=== PATIENT | male | born 1945 | race Caucasian/White ===

== ENCOUNTER 2018-01-15 21:54 | Observation (INO) ==
[2018-01-15 23:10] LABS: Basophils # 0.1 10*3/uL (0.0-0.2); Basophils % 0.4 % (0.0-0.8); Eosinophils # 0.5 10*3/uL (0.0-0.87); Eosinophils % 4.1 % (0.00-10.9); Hematocrit 51.2 VOL% (42.0-52.0); Hemoglobin 16.9 GM/DL (14.0-18.0); Immature Granulocytes % 0.3 %; Immature Granulocytes Absolute 0.04 #; Lymphocytes # 3.1 10*3/uL (1.4-4.0); Lymphocytes % 26.2 % (21.2-54.2); Mean Corpuscular Hemoglobin 31 PG (27-34); Mean Corpuscular Volume 94.3 FL (87-102); Mean Platelet Volume 11.5 FL (9.6-12.0); Monocytes % 8.7 % (1.7-12.7); Neutrophils # 7.1 10*3/uL (1.4-7.4); Neutrophils % 60.3 % (38.7-73.9); Platelet Count 213 T/CUMM (130-400); Red Blood Count 5.43 MC/CUMM (3.8-5.5); Red Cell Distribution Width 14.8 % (9.3-17.3); White Blood Count 11.7 T/CUMM (4-12)
[2018-01-15 23:15] LABS: PT Patient Result 10.4 SECS
[2018-01-15 23:31] LABS: Alanine Aminotransferase 24 U/L (16-61); Albumin 3.2 G/DL (3.4-5.0); Alkaline Phosphatase 106 U/L (45-117); Aspartate Amino Transferase 26 U/L (0-37); Blood Urea Nitrogen 21 MG/DL (7-18); Calcium 8.8 MG/DL (8.5-10.1); Glucose 116 MG/DL (74-106); Osmolality,Calculated 284.3 MOS/KG (273-304); Potassium 4.3 MMOL/L (3.5-5.1); Sodium 141 MMOL/L (136-145); Total Protein 7.6 G/DL (6.4-8.3); Troponin I < 0.015 NG/ML (0.00-0.045)
[2018-01-15 23:34] LABS: Apearance,Urine CLEAR (Clear); Bacteria,Urine Occasional /HPF (Few); Bilirubin,Urine Negative (Negative); Blood, Urine Negative (Negative); Glucose,Urine (UA) Negative (Negative); Hyaline Casts,Urine 1 /LPF (0-3); Ketones,Urine Negative (Negative); Mucus,Urine Occasional /LPF (Occasional); Nitrite,Urine Negative (Negative); Protein,Urine Negative; RBC,Urine 1 /HPF (0-4); Urine Color Yellow (Yellow); Urine Specific Gravity 1.013 (1.001-1.035); WBC,Urine <1 /HPF (0-6)
[2018-01-15 23:39] LABS: Barbiturates Screen,Urine Negative (Negative); Benzodiazepines Screen,Urine Negative (Negative); Cannabinoid Screen,Urine Negative (Negative); Opiate Screen,Urine Negative (Negative); Phencyclidine Screen,Urine Negative (Negative)
[2018-01-15 23:43] LABS: Ammonia 42 UMOL/L (11-32)
[2018-01-16 00:17] LABS: Sedimentation Rate-Westergren 8 MM/HR (0-20)
[2018-01-16] MEDS ORDERED: GLUCAGON 1 MG VIAL IM PRN (00:53)
[2018-01-16] MEDS ORDERED: ACETAMINOPHEN 325 MG TABLET PO PRN (00:53)
[2018-01-16] MEDS ORDERED: DEXTROSE 50% 25 GM/50 ML VIAL IV PRN (00:53)
[2018-01-16] MEDS ORDERED: ONDANSETRON 4 MG/2 ML VIAL IV PRN (00:53)
[2018-01-16] MEDS ORDERED: MORPHINE 4 MG/1 ML VIAL IV PRN (00:53)
[2018-01-16] MEDS: SODIUM CHLORIDE 0.9% 1,000 ML IV SCH ×2 (01:10→14:53)
[2018-01-16] MEDS: INSULIN REGULAR 100 UNIT/ML SUBCUT SCH ×4 (04:40→18:03)
[2018-01-16 07:05] LABS: Basophils # 0.1 10*3/uL (0.0-0.2); Basophils % 0.5 % (0.0-0.8); Eosinophils # 0.3 10*3/uL (0.0-0.87); Eosinophils % 2.5 % (0.00-10.9); Hematocrit 48.5 VOL% (42.0-52.0); Hemoglobin 16.1 GM/DL (14.0-18.0); Immature Granulocytes % 0.4 %; Immature Granulocytes Absolute 0.04 #; Lymphocytes # 1.7 10*3/uL (1.4-4.0); Lymphocytes % 15.3 % (21.2-54.2); Mean Corpuscular HGB Conc 33.2 GM/DL (32-36); Mean Corpuscular Hemoglobin 31 PG (27-34); Mean Corpuscular Volume 93.6 FL (87-102); Mean Platelet Volume 10.5 FL (9.6-12.0); Monocytes # 0.8 10*3/uL (0.11-0.8); Monocytes % 7.4 % (1.7-12.7); Neutrophils # 8.2 10*3/uL (1.4-7.4); Neutrophils % 73.9 % (38.7-73.9); Platelet Count 192 T/CUMM (130-400); Red Blood Count 5.18 MC/CUMM (3.8-5.5); Red Cell Distribution Width 14.6 % (9.3-17.3)
[2018-01-16 07:36] LABS: Albumin 2.9 G/DL (3.4-5.0); Bilirubin,Total 0.4 MG/DL (0.2-1.0); Calcium 8.5 MG/DL (8.5-10.1); Osmolality,Calculated 282.3 MOS/KG (273-304); Potassium 4.2 MMOL/L (3.5-5.1); Risk Ratio 3.31; Total Protein 6.9 G/DL (6.4-8.3); VLDL CHOLESTEROL 12.4 MG/DL
[2018-01-16] MEDS: CLORAZEPATE 7.5 MG TABLET PO SCH ×3 (10:33→20:52)
[2018-01-16] MEDS: DONEPEZIL 5 MG TABLET PO SCH (10:34)
[2018-01-16] MEDS: SERTRALINE 100 MG TABLET PO SCH (10:34)
[2018-01-16] MEDS: QUEtiapine 25 MG TABLET PO SCH (10:34)
[2018-01-16] MEDS: DOCUSATE SODIUM 100 MG CAPSULE PO SCH ×2 (10:34→20:52)
[2018-01-16] MEDS: ASPIRIN EC 325 MG TABLET PO SCH (10:34)
[2018-01-16] MEDS: PANTOPRAZOLE 40 MG TABLET PO SCH (10:34)
[2018-01-17] MEDS: INSULIN REGULAR 100 UNIT/ML SUBCUT SCH ×2 (03:39→07:52)
[2018-01-17] MEDS: SODIUM CHLORIDE 0.9% 1,000 ML IV SCH (06:02)
[2018-01-17 08:00] VITALS: BP 126/77
[2018-01-17] MEDS: SERTRALINE 100 MG TABLET PO SCH (08:09)
[2018-01-17] MEDS: QUEtiapine 25 MG TABLET PO SCH (08:09)
[2018-01-17] MEDS: DONEPEZIL 5 MG TABLET PO SCH (08:09)
[2018-01-17] MEDS: PANTOPRAZOLE 40 MG TABLET PO SCH (08:10)
[2018-01-17] MEDS: CLORAZEPATE 7.5 MG TABLET PO SCH (08:10)
[2018-01-17] MEDS: DOCUSATE SODIUM 100 MG CAPSULE PO SCH (08:10)
[2018-01-17] MEDS: ASPIRIN EC 325 MG TABLET PO SCH (08:10)
== END 2018-01-17 08:37 | disposition home or self-care (01) ==
LOC: N.EDINP 21:54 → N.ED 21:54 → SUPCPDRO 01-16 00:33 → N.4E 01-16 00:50
PROVIDERS: ADMIT Family Medicine; ATTEND Family Medicine

== ENCOUNTER 2018-11-29 17:15 | Inpatient (IN) ==
[2018-11-29 18:49] LABS: Basophils # 0.1 10*3/uL (0.0-0.2); Basophils % 0.6 % (0.0-0.8); Eosinophils # 0.4 10*3/uL (0.0-0.87); Eosinophils % 3.6 % (0.00-10.9); Hematocrit 52.1 VOL% (42.0-52.0); Hemoglobin 16.8 GM/DL (14.0-18.0); Immature Granulocytes % 0.3 %; Immature Granulocytes Absolute 0.03 #; Lymphocytes # 2.1 10*3/uL (1.4-4.0); Lymphocytes % 20.2 % (21.2-54.2); Mean Corpuscular HGB Conc 32.2 GM/DL (32-36); Mean Corpuscular Volume 89.5 FL (87-102); Monocytes % 9.4 % (1.7-12.7); Neutrophils % 65.9 % (38.7-73.9); Platelet Count 246 T/CUMM (130-400); Red Blood Count 5.82 MC/CUMM (3.8-5.5); Red Cell Distribution Width 16.6 % (9.3-17.3); White Blood Count 10.5 T/CUMM (4-12)
[2018-11-29] MEDS ORDERED: LORazepam 2 MG/1 ML VIAL ONE (18:49)
[2018-11-29] MEDS ORDERED: LORazepam 2 MG/1 ML VIAL IV STA (18:53)
[2018-11-29] MEDS ORDERED: FOSPHENYTOIN 1,000 MG.PE in SODIUM CHLORIDE 0.9% 250 ML IV STA (18:53)
[2018-11-29 18:54] LABS: PT Patient Result 10.7 SECS (9.6-12.2)
[2018-11-29 18:55] LABS: Alanine Aminotransferase 27 U/L (16-61); Albumin 2.7 G/DL (3.4-5.0); Alkaline Phosphatase 103 U/L (45-117); Aspartate Amino Transferase 18 U/L (0-37); Bilirubin,Total < 0.39 MG/DL (0.2-1.0); Blood Urea Nitrogen 22 MG/DL (7-18); Calcium 9.2 MG/DL (8.5-10.1); Estimated Glom Filtration Rate 77 ML/MIN; Glucose 96 MG/DL (74-106); Osmolality,Calculated 283.3 MOS/KG (273-304); Total Protein 7.2 G/DL (6.4-8.3)
[2018-11-29] MEDS ORDERED: FOSPHENYTOIN 500 MG.PE/10 ML VIAL ONE (18:58)
[2018-11-29] MEDS ORDERED: DEXAMETHASONE 10 MG/1 ML VIAL IV STA (20:24)
[2018-11-29] MEDS ORDERED: ACETAMINOPHEN 325 MG TABLET PO PRN (20:33)
[2018-11-29] MEDS ORDERED: ONDANSETRON 4 MG/2 ML VIAL IV PRN (20:33)
[2018-11-29] MEDS: DEXTROSE 5% NACL 0.45% 1,000 ML IV SCH (23:34)
[2018-11-30] MEDS ORDERED: NABUMETONE 750 MG TABLET PO SCH (09:00)
[2018-11-30] MEDS: LORazepam 0.5 MG TABLET PO SCH ×2 (09:07→21:08)
[2018-11-30] MEDS: ASPIRIN CHEW 81 MG TABLET PO SCH (09:07)
[2018-11-30] MEDS: PANTOPRAZOLE 40 MG VIAL IV SCH (09:07)
[2018-11-30] MEDS: SERTRALINE 100 MG TABLET PO SCH (09:07)
[2018-11-30] MEDS: ENOXAPARIN 40 MG/0.4 ML SYRINGE SUBCUT SCH (09:08)
[2018-11-30] MEDS ORDERED: PHENYTOIN ER 100 MG CAPSULE PO SCH ×2 (15:00→21:00)
[2018-11-30] MEDS ORDERED: PHENYTOIN INJ 1,000 MG in SODIUM CHLORIDE 0.9% 100 ML IV ONE (15:37)
[2018-12-01] MEDS: DEXTROSE 5% NACL 0.45% 1,000 ML IV SCH (07:15)
[2018-12-01 08:16] LABS: Basophils % 0.3 % (0.0-0.8); Eosinophils # 0.1 10*3/uL (0.0-0.87); Eosinophils % 1.4 % (0.00-10.9); Hematocrit 49.7 VOL% (42.0-52.0); Hemoglobin 16.2 GM/DL (14.0-18.0); Immature Granulocytes % 0.3 %; Immature Granulocytes Absolute 0.03 #; Lymphocytes # 1.6 10*3/uL (1.4-4.0); Lymphocytes % 17.2 % (21.2-54.2); Mean Corpuscular HGB Conc 32.6 GM/DL (32-36); Mean Corpuscular Volume 89.5 FL (87-102); Mean Platelet Volume 9.9 FL (9.6-12.0); Monocytes % 11.3 % (1.7-12.7); Neutrophils % 69.5 % (38.7-73.9); Platelet Count 205 T/CUMM (130-400); Red Blood Count 5.55 MC/CUMM (3.8-5.5); Red Cell Distribution Width 15.9 % (9.3-17.3); White Blood Count 9.6 T/CUMM (4-12)
[2018-12-01 08:35] LABS: Albumin 2.7 G/DL (3.4-5.0); Bilirubin,Total 0.4 MG/DL (0.2-1.0); Calcium 9.5 MG/DL (8.5-10.1); Osmolality,Calculated 286.8 MOS/KG (273-304); Total Protein 6.5 G/DL (6.4-8.3)
[2018-12-01] MEDS: ENOXAPARIN 40 MG/0.4 ML SYRINGE SUBCUT SCH (09:00)
[2018-12-01] MEDS: PANTOPRAZOLE 40 MG VIAL IV SCH (09:00)
[2018-12-01] MEDS: ASPIRIN CHEW 81 MG TABLET PO SCH (09:10)
[2018-12-01] MEDS: LORazepam 0.5 MG TABLET PO SCH ×2 (09:10→20:53)
[2018-12-01] MEDS: SERTRALINE 100 MG TABLET PO SCH (09:10)
[2018-12-01] MEDS: ISOSORBIDE MONONITRATE 30 MG TABLET PO SCH (12:00)
[2018-12-01 18:00] LABS: Apearance,Urine CLEAR (Clear); Bilirubin,Urine Negative (Negative); Blood, Urine Negative (Negative); Glucose,Urine (UA) Negative (Negative); Ketones,Urine Negative (Negative); Nitrite,Urine Negative (Negative); Protein,Urine Negative; RBC,Urine 3 /HPF (0-4); Urine Color Yellow (Yellow); Urine Specific Gravity 1.038 (1.001-1.035); Urine Urobilinogen < 2.0 EU/DL (0.2-1.0); WBC,Urine <1 /HPF (0-6)
[2018-12-01] MEDS: levETIRAcetam 500 MG TABLET PO SCH (20:53)
[2018-12-01] MEDS: DEXAMETHASONE 4 MG TABLET PO SCH (20:53)
[2018-12-02] MEDS: DEXTROSE 5% NACL 0.45% 1,000 ML IV SCH ×2 (02:42→21:00)
[2018-12-02 05:40] LABS: Basophils % 0.3 % (0.0-0.8); Eosinophils % 0.1 % (0.00-10.9); Hematocrit 48.8 VOL% (42.0-52.0); Hemoglobin 15.9 GM/DL (14.0-18.0); Immature Granulocytes % 0.3 %; Immature Granulocytes Absolute 0.02 #; Lymphocytes # 0.9 10*3/uL (1.4-4.0); Lymphocytes % 11.1 % (21.2-54.2); Mean Corpuscular HGB Conc 32.6 GM/DL (32-36); Mean Corpuscular Volume 89.7 FL (87-102); Mean Platelet Volume 10.6 FL (9.6-12.0); Monocytes % 4.1 % (1.7-12.7); Neutrophils % 84.1 % (38.7-73.9); Platelet Count 217 T/CUMM (130-400); Red Blood Count 5.44 MC/CUMM (3.8-5.5); Red Cell Distribution Width 16.2 % (9.3-17.3); White Blood Count 7.6 T/CUMM (4-12)
[2018-12-02 06:18] LABS: Albumin 2.6 G/DL (3.4-5.0); Calcium 8.7 MG/DL (8.5-10.1); Osmolality,Calculated 285.1 MOS/KG (273-304); Thyroid Stimulating Hormone 1.54 uIU/ml (0.358-3.74); Total Protein 6.4 G/DL (6.4-8.3)
[2018-12-02] MEDS: ENOXAPARIN 40 MG/0.4 ML SYRINGE SUBCUT SCH (09:00)
[2018-12-02] MEDS: DEXAMETHASONE 4 MG TABLET PO SCH ×2 (09:00→20:58)
[2018-12-02] MEDS: LORazepam 0.5 MG TABLET PO SCH ×2 (09:00→20:58)
[2018-12-02] MEDS: PANTOPRAZOLE 40 MG VIAL IV SCH (09:00)
[2018-12-02] MEDS: SERTRALINE 100 MG TABLET PO SCH (09:00)
[2018-12-02] MEDS: ISOSORBIDE MONONITRATE 30 MG TABLET PO SCH (09:01)
[2018-12-02] MEDS: levETIRAcetam 500 MG TABLET PO SCH ×2 (09:02→21:10)
[2018-12-02] MEDS: ASPIRIN CHEW 81 MG TABLET PO SCH (09:02)
[2018-12-02] MEDS: ENALAPRIL 20 MG TABLET PO SCH (09:02)
[2018-12-03 05:13] LABS: Basophils % 0.1 % (0.0-0.8); Eosinophils % 0.1 % (0.00-10.9); Hematocrit 48.1 VOL% (42.0-52.0); Hemoglobin 15.7 GM/DL (14.0-18.0); Immature Granulocytes % 0.4 %; Immature Granulocytes Absolute 0.04 #; Mean Corpuscular HGB Conc 32.6 GM/DL (32-36); Mean Corpuscular Volume 89.1 FL (87-102); Mean Platelet Volume 10.4 FL (9.6-12.0); Monocytes % 4.6 % (1.7-12.7); Neutrophils % 85.8 % (38.7-73.9); Platelet Count 217 T/CUMM (130-400); White Blood Count 10.5 T/CUMM (4-12)
[2018-12-03 05:27] LABS: Albumin 2.6 G/DL (3.4-5.0); Bilirubin,Total 0.4 MG/DL (0.2-1.0); Calcium 8.9 MG/DL (8.5-10.1); Osmolality,Calculated 284.1 MOS/KG (273-304); Total Protein 6.5 G/DL (6.4-8.3)
[2018-12-03] MEDS: LORazepam 0.5 MG TABLET PO SCH ×2 (09:18→20:40)
[2018-12-03] MEDS: ENALAPRIL 20 MG TABLET PO SCH (09:18)
[2018-12-03] MEDS: levETIRAcetam 500 MG TABLET PO SCH ×2 (09:18→20:40)
[2018-12-03] MEDS: ENOXAPARIN 40 MG/0.4 ML SYRINGE SUBCUT SCH (09:18)
[2018-12-03] MEDS: PANTOPRAZOLE 40 MG VIAL IV SCH (09:18)
[2018-12-03] MEDS: ASPIRIN CHEW 81 MG TABLET PO SCH (09:18)
[2018-12-03] MEDS: SERTRALINE 100 MG TABLET PO SCH (09:18)
[2018-12-03] MEDS: DEXAMETHASONE 4 MG TABLET PO SCH ×2 (09:18→20:40)
[2018-12-03] MEDS: ISOSORBIDE MONONITRATE 30 MG TABLET PO SCH (09:19)
[2018-12-03] MEDS: DEXTROSE 5% NACL 0.45% 1,000 ML IV SCH ×6 (14:49→22:50)
[2018-12-04 03:46] LABS: Basophils % 0.2 % (0.0-0.8); Eosinophils % 0.1 % (0.00-10.9); Hematocrit 46.9 VOL% (42.0-52.0); Hemoglobin 15.4 GM/DL (14.0-18.0); Immature Granulocytes % 0.5 %; Immature Granulocytes Absolute 0.05 #; Lymphocytes % 9.6 % (21.2-54.2); Mean Corpuscular HGB Conc 32.8 GM/DL (32-36); Mean Corpuscular Volume 89.5 FL (87-102); Mean Platelet Volume 9.9 FL (9.6-12.0); Monocytes % 4.9 % (1.7-12.7); Neutrophils % 84.7 % (38.7-73.9); Platelet Count 202 T/CUMM (130-400); Red Blood Count 5.24 MC/CUMM (3.8-5.5); Red Cell Distribution Width 15.9 % (9.3-17.3); White Blood Count 10.2 T/CUMM (4-12)
[2018-12-04 04:12] LABS: Albumin 2.6 G/DL (3.4-5.0); Bilirubin,Total 0.4 MG/DL (0.2-1.0); Calcium 8.9 MG/DL (8.5-10.1); Osmolality,Calculated 288.7 MOS/KG (273-304); Total Protein 6.3 G/DL (6.4-8.3)
[2018-12-04] MEDS: ISOSORBIDE MONONITRATE 30 MG TABLET PO SCH (08:46)
[2018-12-04] MEDS: LORazepam 0.5 MG TABLET PO SCH ×2 (08:46→21:16)
[2018-12-04] MEDS: PANTOPRAZOLE 40 MG VIAL IV SCH (08:46)
[2018-12-04] MEDS: ENALAPRIL 20 MG TABLET PO SCH (08:47)
[2018-12-04] MEDS: DEXAMETHASONE 4 MG TABLET PO SCH ×2 (08:47→21:16)
[2018-12-04] MEDS: SERTRALINE 100 MG TABLET PO SCH (08:48)
[2018-12-04] MEDS: ASPIRIN CHEW 81 MG TABLET PO SCH (08:48)
[2018-12-04] MEDS: levETIRAcetam 500 MG TABLET PO SCH ×2 (08:48→21:16)
[2018-12-04] MEDS: DEXTROSE 5% NACL 0.45% 1,000 ML IV SCH (08:48)
[2018-12-04] MEDS: ENOXAPARIN 40 MG/0.4 ML SYRINGE SUBCUT SCH (08:51)
[2018-12-05] MEDS: LORazepam 0.5 MG TABLET PO SCH ×2 (08:46→21:39)
[2018-12-05] MEDS: ASPIRIN CHEW 81 MG TABLET PO SCH (08:48)
[2018-12-05] MEDS: ISOSORBIDE MONONITRATE 30 MG TABLET PO SCH (08:51)
[2018-12-05] MEDS: DEXAMETHASONE 4 MG TABLET PO SCH (08:53)
[2018-12-05] MEDS: levETIRAcetam 500 MG TABLET PO SCH ×2 (08:54→21:39)
[2018-12-05] MEDS: SERTRALINE 100 MG TABLET PO SCH (08:55)
[2018-12-05] MEDS: ENOXAPARIN 40 MG/0.4 ML SYRINGE SUBCUT SCH (08:57)
[2018-12-05] MEDS: PANTOPRAZOLE 40 MG VIAL IV SCH (08:59)
[2018-12-05] MEDS: ENALAPRIL 20 MG TABLET PO SCH (09:13)
[2018-12-05] MEDS ORDERED: DEXAMETHASONE 10 MG/1 ML VIAL IV SCH (10:30)
[2018-12-05] MEDS: DEXAMETHASONE INJ 20 MG in SODIUM CHLORIDE 0.9% 50 ML IV SCH ×2 (11:49→21:38)
[2018-12-05] MEDS: DEXTROSE 5% NACL 0.45% 1,000 ML IV SCH ×3 (13:56→21:38)
[2018-12-06 04:31] LABS: Basophils % 0.1 % (0.0-0.8); Eosinophils % 0.1 % (0.00-10.9); Hematocrit 49.1 VOL% (42.0-52.0); Immature Granulocytes % 0.2 %; Immature Granulocytes Absolute 0.02 #; Lymphocytes # 0.6 10*3/uL (1.4-4.0); Lymphocytes % 6.6 % (21.2-54.2); Mean Corpuscular HGB Conc 32.6 GM/DL (32-36); Mean Corpuscular Volume 88.9 FL (87-102); Mean Platelet Volume 11.1 FL (9.6-12.0); Platelet Count 207 T/CUMM (130-400); Red Blood Count 5.52 MC/CUMM (3.8-5.5); Red Cell Distribution Width 16.1 % (9.3-17.3); White Blood Count 8.6 T/CUMM (4-12)
[2018-12-06 04:58] LABS: Calcium 9.3 MG/DL (8.5-10.1)
[2018-12-06 05:40] LABS: Lymphocytes 2 % (20-55); Platelet Estimate Normal; Segmented Neutrophils 95 % (50-85); Total Cells Counted 100
[2018-12-06] MEDS: DEXTROSE 5% NACL 0.45% 1,000 ML IV SCH ×2 (06:03→14:27)
[2018-12-06] MEDS: LORazepam 0.5 MG TABLET PO SCH ×2 (09:31→21:42)
[2018-12-06] MEDS: ENALAPRIL 20 MG TABLET PO SCH (09:32)
[2018-12-06] MEDS: levETIRAcetam 500 MG TABLET PO SCH ×2 (09:32→21:42)
[2018-12-06] MEDS: ISOSORBIDE MONONITRATE 30 MG TABLET PO SCH (09:33)
[2018-12-06] MEDS: ASPIRIN CHEW 81 MG TABLET PO SCH (09:33)
[2018-12-06] MEDS: SERTRALINE 100 MG TABLET PO SCH (09:34)
[2018-12-06] MEDS: PANTOPRAZOLE 40 MG VIAL IV SCH (09:38)
[2018-12-06] MEDS: ENOXAPARIN 40 MG/0.4 ML SYRINGE SUBCUT SCH (09:41)
[2018-12-06] MEDS: DEXAMETHASONE INJ 20 MG in SODIUM CHLORIDE 0.9% 50 ML IV SCH ×2 (11:23→22:02)
[2018-12-07 04:23] LABS: Basophils % 0.2 % (0.0-0.8); Hematocrit 50.1 VOL% (42.0-52.0); Hemoglobin 16.1 GM/DL (14.0-18.0); Immature Granulocytes % 0.6 %; Immature Granulocytes Absolute 0.07 #; Lymphocytes # 0.7 10*3/uL (1.4-4.0); Lymphocytes % 5.8 % (21.2-54.2); Mean Corpuscular HGB Conc 32.1 GM/DL (32-36); Mean Corpuscular Volume 89.6 FL (87-102); Mean Platelet Volume 10.8 FL (9.6-12.0); Monocytes % 2.7 % (1.7-12.7); Neutrophils % 90.7 % (38.7-73.9); Platelet Count 219 T/CUMM (130-400); Red Blood Count 5.59 MC/CUMM (3.8-5.5); White Blood Count 12.7 T/CUMM (4-12)
[2018-12-07 04:51] LABS: Calcium 9.2 MG/DL (8.5-10.1); Osmolality,Calculated 289.7 MOS/KG (273-304)
[2018-12-07 05:50] LABS: Band Neutrophils 1 % (0-10); Eosinophils 1 % (0-10); Lymphocytes 5 % (20-55); Segmented Neutrophils 89 % (50-85); Total Cells Counted 100
[2018-12-07 05:51] LABS: Anisocytosis 1+; Ovalocytes Slight; Platelet Estimate Adequate
[2018-12-07] MEDS: LORazepam 0.5 MG TABLET PO SCH ×2 (09:25→20:49)
[2018-12-07] MEDS: ENALAPRIL 20 MG TABLET PO SCH (09:26)
[2018-12-07] MEDS: ISOSORBIDE MONONITRATE 30 MG TABLET PO SCH (09:26)
[2018-12-07] MEDS: SERTRALINE 100 MG TABLET PO SCH (09:27)
[2018-12-07] MEDS: levETIRAcetam 500 MG TABLET PO SCH ×2 (09:27→20:49)
[2018-12-07] MEDS: ASPIRIN CHEW 81 MG TABLET PO SCH (09:27)
[2018-12-07] MEDS: ENOXAPARIN 40 MG/0.4 ML SYRINGE SUBCUT SCH (09:32)
[2018-12-07] MEDS: PANTOPRAZOLE 40 MG VIAL IV SCH (09:35)
[2018-12-07] MEDS: DEXAMETHASONE INJ 20 MG in SODIUM CHLORIDE 0.9% 50 ML IV SCH ×2 (09:37→22:24)
[2018-12-07] MEDS: DEXTROSE 5% NACL 0.45% 1,000 ML IV SCH ×4 (09:39→20:53)
[2018-12-07] MEDS: FLUCONAZOLE INJ 100 MG in IV BAG 1 EACH IV SCH (19:44)
[2018-12-08] MEDS: DEXTROSE 5% NACL 0.45% 1,000 ML IV SCH ×3 (06:23→22:53)
[2018-12-08] MEDS: PANTOPRAZOLE 40 MG VIAL IV SCH (08:45)
[2018-12-08] MEDS: ENOXAPARIN 40 MG/0.4 ML SYRINGE SUBCUT SCH (08:45)
[2018-12-08] MEDS: ASPIRIN CHEW 81 MG TABLET PO SCH (08:46)
[2018-12-08] MEDS: ISOSORBIDE MONONITRATE 30 MG TABLET PO SCH (08:46)
[2018-12-08] MEDS: ENALAPRIL 20 MG TABLET PO SCH (08:46)
[2018-12-08] MEDS: LORazepam 0.5 MG TABLET PO SCH ×2 (08:46→21:33)
[2018-12-08] MEDS: SERTRALINE 100 MG TABLET PO SCH (08:47)
[2018-12-08] MEDS: levETIRAcetam 500 MG TABLET PO SCH ×2 (08:47→21:34)
[2018-12-08] MEDS: DEXAMETHASONE INJ 20 MG in SODIUM CHLORIDE 0.9% 50 ML IV SCH ×2 (11:20→22:41)
[2018-12-08] MEDS: FLUCONAZOLE INJ 100 MG in IV BAG 1 EACH IV SCH (17:38)
[2018-12-09] MEDS: DEXTROSE 5% NACL 0.45% 1,000 ML IV SCH (07:48)
[2018-12-09] MEDS: ENALAPRIL 20 MG TABLET PO SCH (08:39)
[2018-12-09] MEDS: ENOXAPARIN 40 MG/0.4 ML SYRINGE SUBCUT SCH (08:39)
[2018-12-09] MEDS: PANTOPRAZOLE 40 MG VIAL IV SCH (08:39)
[2018-12-09] MEDS: ASPIRIN CHEW 81 MG TABLET PO SCH (08:40)
[2018-12-09] MEDS: ISOSORBIDE MONONITRATE 30 MG TABLET PO SCH (08:40)
[2018-12-09] MEDS: levETIRAcetam 500 MG TABLET PO SCH (08:40)
[2018-12-09] MEDS: SERTRALINE 100 MG TABLET PO SCH (08:40)
[2018-12-09] MEDS: LORazepam 0.5 MG TABLET PO SCH (08:58)
[2018-12-09] MEDS ORDERED: LORazepam 2 MG/1 ML VIAL IV SCH (09:00)
[2018-12-09] MEDS ORDERED: DEXAMETHASONE 4 MG TABLET PO SCH (09:00)
[2018-12-09 11:21] VITALS: BP 101/58
== END 2018-12-09 14:00 | disposition home or self-care (01) | DRG 987 ==
LOC: N.ED 17:15 → N.EDINP 20:32 → N.4E 21:45
PROVIDERS: ADMIT Family Medicine; ATTEND Family Medicine